=== PATIENT | female | born 1945 | race Caucasian/White ===

== ENCOUNTER → 2016-08-19 | Outpatient (CLI) | payer MEDICARE ==
[2016-08-19 09:24] LABS: BASOPHILS % (AUTO) 1 % (0-2); EOSINOPHILS # (AUTO) 0.1 10^3uL; EOSINOPHILS % (AUTO) 2 % (0-4); MEAN CORPUSCULAR HGB CONC 35.1 g/dL (31.0-37.0); MEAN CORPUSCULAR VOLUME 88 FL (80-100); MEAN PLATELET VOLUME 9.5 FL (6.0-9.5); MONOCYTES # (AUTO) 0.8 X10^3; MONOCYTES % (AUTO) 14 % (3-11); NEUTROPHILS # (AUTO) 2.7 X10^3; NEUTROPHILS % (AUTO) 47 % (51-67); PLATELET COUNT 238 10^3uL (150-450); WHITE BLOOD COUNT 5.74 10^3uL (4.0-11.0)
[2016-08-19 09:57] LABS: ALBUMIN 4.1 g/dL (3.4-5.0); ANION GAP 16.5 MEQ/L (3-15); CALCULATED IONIZED CALCIUM 4.6 mg/dL (3.8-4.6); TOTAL PROTEIN 6.9 g/dL (6.4-8.5)
== END ==
LOC: LAB 09:06
PROVIDERS: ATTEND Internal Medicine
DX: Z00.00 Encounter for general adult medical examination without abnormal findings (principal); K21.9 Gastro-esophageal reflux disease without esophagitis; I10 Essential (primary) hypertension; E11.9 Type 2 diabetes mellitus without complications; E78.4 Other hyperlipidemia; E03.8 Other specified hypothyroidism
CPT/HCPCS: 36415; 80053; 80061; 82043; 83036; 84443; 85025

== ENCOUNTER → 2016-09-02 | Outpatient (CLI) | payer MEDICARE | LOC: RAD 09:24 | PROVIDERS: ATTEND Internal Medicine | DX: I65.23 Occlusion and stenosis of bilateral carotid arteries (principal) | CPT/HCPCS: 93880 ==

== ENCOUNTER → 2016-10-16 | Outpatient (CLI) | payer MEDICARE ==
[2016-10-16 10:15] LABS: MEAN CORPUSCULAR HEMOGLOBIN 30.4 PG (26.0-34.0); MEAN CORPUSCULAR HGB CONC 34.3 g/dL (31.0-37.0); MEAN PLATELET VOLUME 9.1 FL (6.0-9.5); WHITE BLOOD COUNT 6.52 10^3uL (4.0-11.0)
[2016-10-16 10:55] LABS: ALBUMIN 4.2 g/dL (3.4-5.0); ANION GAP 13.9 MEQ/L (3-15); CALCULATED IONIZED CALCIUM 4.3 mg/dL (3.8-4.6); MAGNESIUM* 1.8 mg/dL (1.6-2.3); TOTAL PROTEIN 7.3 g/dL (6.4-8.5)
== END ==
LOC: LAB 10:04
PROVIDERS: ATTEND Internal Medicine Hematology & Oncology
DX: C50.411 Malignant neoplasm of upper-outer quadrant of right female breast (principal)
CPT/HCPCS: 36415; 80053; 83615; 83735; 84100; 85027; 86300